=== PATIENT | female | born 1980 | race Caucasian/White ===

== ENCOUNTER 2016-06-30 19:05 | Emergency (ER) | payer BC ==
--- NOTE | 2016-07-02 04:19 | ER ---
ADMIT: 06/30/2016 RM/LOC: ER [facility] MR#: [id number] [address] [id number] [address] [place] [address] Emergency Room Report SEX: F AGE: 36 : 1980 DATE: 06/30/2016 HISTORY OF PRESENT ILLNESS: This is a 36-year-old female, presents to emergency room with a headache. She says she has had some nausea and vomiting. It has been going on for 1 day. She works at [employer] and is quite stressful for her. Her headache she says is frontal as well as in the nuchal region. She has had some nausea, vomiting, got up this morning, throwing up, but still went to work, and over there, she was sent home because she just could not work, she threw up. She has multiple headaches in the past. She has had headaches since she was a very young child. PAST MEDICAL HISTORY: Negative except for chronic headaches in the form of migraine. She has photosensitivity and nausea, vomiting, and light sensitivity as well. She works at [employer]. PHYSICAL EXAMINATION: NEUROLOGICAL: Intact. VITAL SIGNS: Within normal limits. Blood pressure 111/65 with a pulse of 72, O2 sats 99%. GENERAL: She is alert. She has someone that speaks Estonian and translates Azeri for her as well. HEENT: Normal inspection. NECK: Supple. She does have very good range of motion. No stiff neck or meningismus. RESPIRATIONS: No distress. CVS: Regular in rate and rhythm. SKIN: Good color and turgor. ABDOMEN: Nontender. EXTREMITIES: Well perfused. Cranial nerves II through XII intact. She is alert and oriented. Mood and affect are appropriate. UA was within normal limits. She would receive a bag of fluids, Zofran, ADMIT: 06/30/2016 RM/LOC: ER [facility] MR#: [id number] [address] [facility] [address] [place] [id number] [address] [place] [address] Emergency Room Report SEX: F AGE: 36 : 1980 Toradol, and Benadryl. CLINICAL IMPRESSION: Migraine headache, nausea, and vomiting. We are assessing her discomfort now after medication was given. She will be discharged home with instructions to follow up with her primary provider and not to go to work, but she actually did not go to work this afternoon. She was unable to stay there for the whole shift and a note was given in case she is still having issues tomorrow morning. I did talk to her about medication. She does not want to have anything that will cause her to feel sleepy because she has a small child that she needs to attend to during the daytime. Hopefully, the hydration will help with her symptoms. The patient is awaiting discharge. ISAURO Dill / Karthik Jordan MD / norris JOB #: [id number] CC: Karthik Jordan MD, Attending Physician Raghu Small MD, Family Physician
== END 2016-06-30 21:15 | disposition home or self-care (01) ==
LOC: ER 19:05
DX: G43.909 Migraine, unspecified, not intractable, without status migrainosus (principal); Z90.49 Acquired absence of other specified parts of digestive tract

== ENCOUNTER 2016-08-15 05:33 | Emergency (ER) | payer BC ==
--- NOTE | 2016-08-15 19:14 | ER ---
ADMIT: 08/15/2016 RM/LOC: ER [facility] MR#: [id number] [address] [id number] [address] [address] [address] Emergency Room Report SEX: F AGE: 36 : 1980 DATE: 08/15/2016 The patient is a 36-year-old, Sami-speaking female, complaining of typical migraine and headache for the past 9 hours associated with nausea, vomiting, and photophobia. Exam remarkable for nontoxic, afebrile female with no meningismus or focal deficit. Received IV fluids, Zofran, Toradol, DHEA and magnesium with near complete relief of migraine. Follow up Dr. Small's as needed. Ifeanyi Guzman MD/ malcolml JOB #: [id number] CC: Ifeanyi Guzman MD, Attending Physician Raghu Small MD, Family Physician
== END 2016-08-15 07:28 | disposition home or self-care (01) ==
LOC: ER 05:33
DX: G43.909 Migraine, unspecified, not intractable, without status migrainosus (principal); Z90.49 Acquired absence of other specified parts of digestive tract